=== PATIENT | male | born 2005 | race Caucasian/White ===

== ENCOUNTER 2024-10-15 15:00 | Emergency (ER) | payer MEDICAID, SELFPAY ==
[2024-10-15 15:05] VITALS: BP 128/77; PULSE 106; RESP 16; TEMP 36.8; O2SAT 97; BMI 28.2
--- NOTE | 2024-10-15 16:07 | ED.GENADULT ---
HPI - General Adult General Chief complaint: Post Op Complication Stated complaint: Post surgery possible infection Time Seen by Provider: 10/15/24 15:09 History of Present Illness HPI narrative: This 19-year-old male comes in with his mother reporting generalized malaise and fatigue over the past 5 her 6 days. 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 He is ambulating with a walker with only light touch to his affected leg currently. He states that he feels that his nose is congested and his mouth is dry. He did have some lightheadedness when in the bathroom earlier today. He arrives here with normal vital signs except for his heart rate is a bit increased at 106 beats per minute. He has been taking Naprosyn and aspirin for pain relief. He has not had any fevers. He does not report any coughing or shortness of breath. Related Data Home Medications ?Medication ?Instructions ?Recorded ?Confirmed aspirin 81 mg capsule 81 mg PO DAILY 10/15/24 10/15/24 naproxen 500 mg .Route BID 10/15/24 10/15/24 Previous Rx's ?Medication ?Instructions ?Recorded amoxicillin 500 mg capsule 500 mg PO TID 7 days #21 caps 10/15/24 Allergies Allergy/AdvReac Type Severity Reaction Status Date / Time No Known Drug Allergies Allergy Verified 10/15/24 15:10 Review of Systems Status of ROS: Reports: 10 or more systems reviewed and unremarkable except as noted in History and below Narrative: Constitutional: No fevers, no weight gain or loss. Eyes: No discharge. No vision changes. HENT: He reports some nasal congestion and sore throat. Cardiovascular: No chest pain, no palpitations. Respiratory: No shortness of breath, no wheezes, no cough. Gastrointestinal: No abdominal pain, no vomiting, no diarrhea. Genitourinary: No dysuria, no hematuria. Musculoskeletal: Recent hip surgery. Skin: No rashes, no pruritis. Neurological: No dizziness, weakness, sensory change, speech change. Endo/Heme/Allergies: No bruising or bleeding. No polydipsia. Pysch: no suicidality, no anxiety, no insomnia. All other systems reviewed and are negative. Exam Narrative: Exam Narrative: Constitutional: Well-developed, well-nourished, no acute distress. HEENT: Normocephalic, atraumatic. Mucous membranes do appear a bit dry. Neck: Normal range of motion. Nontender. Supple. Heart: Regular. No murmurs. Normal rate. Intact distal pulses. Lungs: Clear to auscultation. No chest discomfort. No wheezes, rhonchi, or rales. Abdomen: Normal bowel sounds. Nontender. No rebound tenderness. Genitalia: Deferred. Back: No midline tenderness. Normal range of motion. Extremities: Hip surgery 2 and half weeks ago. Currently nonweightbearing. Skin: Intact. No rash. Warm. No erythema or pallor. Neurologic: No altered sensation. No weakness. Alert and oriented. Psychiatric: No suicidality. No anxiety or depression. No insomnia. Nursing notes and vitals signs are reviewed. Const: Vital Signs, click to edit/add: Vital Signs - 24 hr 10/15/24 15:05 Temperature 98.3 F Pulse Rate [Pulse Oximeter] 106 H Respiratory Rate 16 Blood Pressure [Ri ght Upper Arm] 128/77 Pulse Oximetry 97 Oxygen Delivery Me thod Room Air Course Vital Signs Vital signs: Initial Vital Signs Temperature 98.3 F 10/15/24 15:05 Temperature Source Oral 10/15/24 15:05 Pulse Rate 106 H 10/15/24 15:05 Respiratory Rate 16 10/15/24 15:05 Blood Pressure 128/77 10/15/24 15:05 Blood Pressure Mean 94 10/15/24 15:05 Blood Pressure Position Sitting 10/15/24 15:05 Pulse Oximetry 97 10/15/24 15:05 Oxygen Delivery Method Room Air 10/15/24 15:05 Vital Signs Temperature 98.3 F 10/15/24 15:05 Pulse Rate 106 H 10/15/24 15:05 Respiratory Rate 16 10/15/24 15:05 Blood Pressure 128/77 10/15/24 15:05 Pulse Oximetry 97 10/15/24 15:05 Oxygen Delivery Method Room Air 10/15/24 15:05 Temperature 98.3 F 10/15/24 15:05 Pulse Rate 106 H 10/15/24 15:05 Respiratory Rate 16 10/15/24 15:05 Blood Pressure 128/77 10/15/24 15:05 Pulse Oximetry 97 10/15/24 15:05 Oxygen Delivery Method Room Air 10/15/24 15:05 Medications Administered Medications: Discontinued Medications Generic Name Dose Route Start Last Admin Trade Name Freq PRN Reason Stop Dose Admin Sodium Chloride 1,000 mls @ 1,000 mls/hr 10/15/24 16:15 10/15/24 16:48 0.9 % Sodium Chloride 1000 Ml IV 10/15/24 17:14 1,000 mls/hr .Q1H MERRITT Administration Medical Decision Making MDM Narrative Medical decision making narrative: This patient comes in reporting some generalized malaise. An IV was established and he received a L of normal saline. Nasal pharyngeal swab returns negative for viruses tested. His blood results returned with reassuring findings except he does have some mild elevation of his white blood count. [place] pharyngeal swab is positive for strep infection. The patient is okay to be discharged home and did receive a prescription for amoxicillin. Lab Data Labs: Lab Results 10/15/24 Range/Units 16:30 WBC 12.25 H (4.50-11.00) K/uL RBC 4.35 (4.30-5.90) m/uL Hgb 12.5 L (13.5-17.5) gm/dL Hct 37.1 (37.0-53.0) % MCV 85 (80-100) fL MCH 29 (26-34) pg MCHC 34 (32-36) gm/dL RDW Coeff of Tasha 12.5 (11.5-15.5) % Plt Count 580 H (140-440) K/uL Neut % (Auto) 76.5 H (42.0-72.0) % Lymph % (Auto) 10.7 L (20-44) % Callahan % (Auto) 9.3 (0.0-11.0) % Eos % (Auto) 0.9 (0.0-7.0) % Baso % (Auto) 0.3 (0.0-3.0) % Neut # (Auto) 9.40 H (1.7-7.0) K/uL Lymph # (Auto) 1.30 (0.90-2.90) K/uL Callahan # (Auto) 1.10 H (0.00-0.90) K/UL Eos # (Auto) 0.10 (0.00-0.50) K/uL Baso # (Auto) 0.00 (0.00-0.30) K/uL Abs Immat Gran (auto) 0.30 (0.00-0.30) K/uL Imm/Tot Granulo (auto) 2.3 % Sodium 136 (135-149) mmol/L Potassium 4.6 (3.6-5.1) mmol/L Chloride 96 (96-114) mmol/L Carbon Dioxide 28 (20-32) mmol/L Anion Gap 12 (7-15) mEq/L BUN 20 (5-24) mg/dL Creatinine 1.0 (0.5-1.5) mg/dL Estimated Creat Clear 110.17 Estimated GFR 111 ml/min Glucose 105 (60-115) mg/dL Calcium 10.2 (8.4-10.6) mg/dL SARS-CoV-2 (PCR) Negative SARS-CoV-2 (Negative) Influenza Type A (PCR) Negative PCR FLU A (Negative) Influenza Type B (PCR) Negative PCR FLU B (Negative) RSV (PCR) Negative PCR RSV (Negative) Group A Strep DNA DETECTED A (Not Detectd) POC Troponin I 0.00 L (0.01-0.04) ng/ml Discharge Plan Discharge Clinical Impression: Acute streptococcal pharyngitis Patient Disposition: Home, Self-Care Condition: Stable Additional Instructions: Take medication as prescribed. Continue current plans otherwise. Follow up with MD return if worsening. Prescriptions: New amoxicillin 500 mg capsule 500 mg PO TID 7 Days Qty: 21 0RF No Action naproxen 500 mg .Route BID aspirin 81 mg capsule 81 mg PO DAILY Follow Up/Referrals: Provider,Not a Local [Primary Care Provider] - Stand Alone Forms: Someec[employer] Info Instructions
[2024-10-15 16:45] LABS: Basophils Percent Auto 0.3 % (0.0-3.0); Eosinophils Percent Auto 0.9 % (0.0-7.0); Hematocrit 37.1 % (37.0-53.0); Hemoglobin* 12.5 gm/dL (13.5-17.5); Immature Granulocytes Pct Auto 2.3 %; Lymphocytes Percent Auto 10.7 % (20-44); Mean Corpuscular HGB Conc 34 gm/dL (32-36); Mean Corpuscular Hemoglobin 29 pg (26-34); Mean Corpuscular Volume 85 fL (80-100); Monocytes Percent Auto 9.3 % (0.0-11.0); Neutrophils Percent Auto 76.5 % (42.0-72.0); Platelet Count* 580 K/uL (140-440); RDW Coefficient of Variation % 12.5 % (11.5-15.5); Red Blood Count 4.35 m/uL (4.30-5.90); White Blood Count* 12.25 K/uL (4.50-11.00)
[2024-10-15] MEDS: 0.9 % SODIUM CHLORIDE 1000 ml 1,000 ML IV (16:48)
[2024-10-15 16:52] LABS: Slide Review Reflex No
[2024-10-15 16:57] LABS: Chloride* 96 mmol/L (96-114); Sodium* 136 mmol/L (135-149)
[2024-10-15 16:58] LABS: Potassium* 4.6 mmol/L (3.6-5.1)
[2024-10-15 17:01] LABS: Anion Gap 12 mEq/L (7-15); Blood Urea Nitrogen* 20 mg/dL (5-24); Calcium* 10.2 mg/dL (8.4-10.6); Carbon Dioxide* 28 mmol/L (20-32); Est. Creatinine Clearance* 110.17; Estimated Glomerular Filt Rate 111 ml/min; Glucose* 105 mg/dL (60-115)
[2024-10-15 17:15] LABS: Strep A DNA Probe* DETECTED (Not Detectd)
[2024-10-15 17:31] LABS: PCR FLU A Negative PCR FLU A (Negative); PCR FLU B Negative PCR FLU B (Negative); PCR RSV Negative PCR RSV (Negative); SARS PCR* Negative SARS-CoV-2 (Negative)
[2024-10-15 17:45] VITALS: BP 134/70; PULSE 104; O2SAT 99
== END 2024-10-15 18:08 | disposition home or self-care (01) ==
PROVIDERS: Emergency Provider Emergency Medicine Emergency Medical Services
DX: J02.0 Streptococcal pharyngitis (principal); R53.83 Other fatigue
CPT/HCPCS: 36415; 80048; 84484; 85025; 87631; 87651; 93005; 99284; J7030